=== PATIENT | male | born 1970 | race Caucasian/White ===

== ENCOUNTER 2021-12-26 07:43 | Outpatient (CLI) | payer BC, SELFPAY ==
[2021-12-26 19:11] LABS: Hemoglobin 15.9 g/dL (14.0-18.0); Mean Corpuscular HGB Conc 33.1 g/dl (32-36); Mean Corpuscular Hemoglobin 31.5 pg (26-34); Mean Platelet Volume 11.6 fl (7.4-10.4); Platelet Count Result 178 k/mm3 (150-375); Red Blood Count 5.05 M/mm3 (4.6-6.20); Red Cell Distribution Width 12.9 % (11.5-14.5); White Blood Count 4.5 K/mm3 (4.5-10.0)
[2021-12-26 21:22] LABS: Alanine Aminotransferase 68 U/L (4-50); Albumin Level 4.5 g/dL (3.5-5.1); Alkaline Phosphatase 99 U/L (38-126); Anion Gap 8 mmol/L (8-16); Aspartate Amino Transferase 45 U/L (17-59); Bilirubin,Total 0.8 mg/dL (0.2-1.3); Blood Urea Nitrogen 13 mg/dL (9-20); Calcium 9.6 mg/dL (8.4-10.2); Carbon Dioxide 25 mmol/L (22-30); Chloride 105 mmol/L (98-107); Cholesterol 137 mg/dL (0-200); Estimated Glomerular Filt Rate > 60; Glucose 119 mg/dL (65-110); HDL Direct 33 mg/dL; Potassium 4.5 mmol/L (3.4-5.0); Sodium 138 mmol/L (137-145); Triglycerides 171 mg/dL (<150)
[2021-12-26 21:33] LABS: LDL Cholesterol Direct 70 mg/dL
[2021-12-26 21:50] LABS: Prostate Specific Antigen 3.1 ng/mL (< OR = 4.0)
[2021-12-30 14:49] LABS: Testosterone Free 41.6 pg/mL (35.0-155.0); Testosterone Total 162 ng/dL (250-1100)
== END 2021-12-26 07:44 | disposition home or self-care (01) ==
PROVIDERS: PCP Family Medicine; Visit Provider Family Medicine
DX: Z12.5 Encounter for screening for malignant neoplasm of prostate (principal); E29.1 Testicular hypofunction; I10 Essential (primary) hypertension; Z00.00 Encounter for general adult medical examination without abnormal findings
CPT/HCPCS: 36415; 80053; 80061; 84153; 84402; 84403; 85027; G0103

== ENCOUNTER 2024-02-18 16:20 | Outpatient (CLI) | payer BC, SELFPAY ==
--- NOTE | ~2024-02-18 | XR_ITS ---
EXAMINATION: XR shoulder LT min 2V DATE: 02/18/2024 16:47 INDICATION: Left shoulder pain. TECHNIQUE: 4 views of left shoulder were obtained. COMPARISON: None. FINDINGS: Bone alignment is normal. No fracture. There is mild osteoarthritis of glenohumeral joint a nd moderate osteoarthritis of acromioclavicular joint. IMPRESSION: 1. Polyarticular osteoarthritis. Reviewed, dictated and finalized at location E.
== END 2024-02-18 16:21 | disposition home or self-care (01) ==
PROVIDERS: PCP Nurse Practitioner Adult Health; Visit Provider Nurse Practitioner Adult Health
DX: M19.012 Primary osteoarthritis, left shoulder (principal)
CPT/HCPCS: 73030

== ENCOUNTER 2025-06-12 16:04 | Outpatient (CLI) | payer BC, SELFPAY ==
--- NOTE | ~2025-06-12 | XR_ITS ---
Left foot Technique: AP, oblique, and lateral views were obtained. Clinical History: Pain Findings: No acute fracture or dislocation is seen. Osseous alignment is anatomic. Joint spaces are preserved without erosive or degenerative change. Soft tissues are unremarkable. Impression: Unremarkable left foot radiographs. Reviewed, dictated and finalized at [facility]. Impression: Unremarkable left foot radiographs.
--- OUTSIDE RECORDS SUMMARY | 2025-06-12 16:10 | XMS_ITS | Clinical Summary ---
Author Organization [facility] – [place] [address] Address [address] [place] [id number] Care Team Providers Care Stock Puller Name Role Phone Willy Tamez MD Primary Care Provider [phone] Allergies No known active allergies Medications gabapentin (NEURONTIN) 300 mg capsule take 1 capsule by oral route 3 times every day 90 5 5 Active Additional Information Patient not taking.Reported on 04/11/2019 cephalexin (KEFLEX) 500 mg capsule TAKE 1 CAPSULE BY MOUTH EVERY 6 HOURS 0 9 Active naproxen (NAPROSYN) 500 mg tablet Take 1 tablet (500 mg total) by mouth 2 (two) times a day with meals 30 tablet 2 Active Additional Information Patient not taking.Reported on 06/01/2023 lidocaine (LIDODERM) 5 % Place 1 patch on the skin daily Remove & discard patch within 12 hours or as directed by . 30 patch 2 Active cyclobenzaprine (FLEXERIL) 10 mg tablet Take 1 tablet (10 mg total) by mouth 2 (two) times a day as needed for muscle spasms 20 tablet 2 Active amLODIPine (NORVASC) 10 mg tablet Take 1 tablet (10 mg total) by mouth daily 3 Active atorvastatin (LIPITOR) 40 mg tablet Take 1 tablet (40 mg total) by mouth daily 3 Active lisinopriL (PRINIVIL,ZESTR IL) 10 mg tablet Take 1 tablet (10 mg total) by mouth daily 3 Active metoprolol XL (TOPROL-XL) 100 mg 24 hr tablet 3 Active Active Problems Problem Noted Date Diagnosed Date Degeneration of intervertebral disc of lumbar re gion 04/01/2016 Overview (01/30/2017): Lumbar DDD Acute appendicitis 12/19/2015 Overview (01/30/2017): Acute appendicitis Restless legs syndrome 05/22/2015 Overview (01/30/2017): Restless leg syndrome Hyperlipidemia 05/22/2015 Overview (01/30/2017): Hyperlipidemia Surgical History Surgery Date Site/Laterality Comments APPENDECTOMY Appendectomy Medical History Medical History Date Comments Hyperlipidemia Hyperlipidemia; Comments: KKL 05/22/2015 - Hypertension Obesity Neck pain 08/24/2022 Tobacco dependence Family History Medical History Relation Name Comments Emphysema Brother Chato Emphysema; Hypertension Brother Chato Hypertension; Relation Name Status Comments Brother Chato Social History Tobacco Use Types Packs/Day Years Used Date Smoking Tobacco: Every Day Tobacco Cessation:Ready to Q uit: Not Asked; Counseling Given: Not Answered Alcohol Use Standard Drinks/Week Comments Yes 0 (1 standard drink = 0.6 oz pur e alcohol) Sex and Gender Information Value Date Recorded Sex Assigned at Not on file 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 Gender Identity Not on file Sexual Orientation Not on file Obstetrics History Last Filed Vital Signs Vital Sign Reading Time Taken Comments Blood Pressure 156/70 06/01/2023 4:39 PM CDT Pulse 88 06/01/2023 4:39 PM CDT Temperature 36.7 C (98.1 F) 06/01/2023 4:39 PM CDT Respiratory Rate 29 06/01/2023 4:39 PM CDT Oxygen Saturation 97% 06/01/2023 4:39 PM CDT Inhaled Oxygen Concentration - - Weight 156.5 kg (345 lb) 06/01/2023 4:39 PM CDT Height 172.7 cm (5' 8) 06/01/2023 4:39 PM CDT Body Mass Index 52.46 06/01/2023 4:39 PM CDT Plan of Treatment Health Maintenance Due Date Last Done Comments Colon Cancer Screening-Colonoscopy 1972 Depression Screening 1972 Hepatitis C Screening 1972 DTaP/Tdap/Td Vaccine (1 - Tdap) 1983 Hepatitis B Screening 1990 Regular Well Visit/Exam 18-64 1990 Pneumococcal vaccine <65 (1 of 2 - PCV) 1991 Zoster Vaccine (1 of 2) 2022 Prostate Cancer Screening-PSA 02/07/2025 02/07/2023, 08/30/2022 Influenza Vaccine (#1) 2025 Procedures Procedure Name Priority Date/Time Associated Diagnosis Comments PSA DIAGNOSTIC Routine 02/07/2023 9:03 AM CDT from Last 3 Months or Most Recently Relevant to Health Maintenance Results * PSA diagnostic (02/07/2023 9:03 AM CDT) PSA-Total 3.77 <=3.90 ng/mL [facility] ([place]) Blood 02/07/2023 9:03 AM CDT 02/07/2023 9:27 AM CDT us Willy Tamez MD LAB BLOOD ORDERABLES Ivon maria Result [facility]A [facility] ([place]) 1 [facility] Department [place] [address] from Last 3 Months or Most Recently Relevant to Health Maintenance Insurance Everstring OOS Everstring OOS Care Teams Stock Puller Relationship Specialty Start Date End Date Willy Tamez MD PCP - General Family Practice 07/26/22
== END 2025-06-12 16:05 | disposition home or self-care (01) ==
PROVIDERS: PCP Nurse Practitioner Adult Health; Visit Provider Nurse Practitioner Adult Health
DX: M79.672 Pain in left foot (principal)
CPT/HCPCS: 73630

== ENCOUNTER 2025-07-24 12:29 | Outpatient (CLI) | payer BC, SELFPAY ==
--- NOTE | ~2025-07-24 | XR_ITS ---
EXAMINATION: XR foot LT min 3V, 07/24/2025 12:31 CDT HISTORY: M79.672 - Pain in left foot COMPARISON: No comparisons available. Findings: No acute fracture or malalignment. Small calcaneal spur. Moderate Achilles enthesopathy. Soft tissues unremarkable. Impression: No acute fracture or malalignment. Reviewed, dictated and finalized at location P. Impression: No acute fracture or malalignment.
--- OUTSIDE RECORDS SUMMARY | 2025-07-24 12:32 | XMS_ITS | Clinical Summary ---
Author Organization [facility] Address [address] [place] [address] Phone Care Team Providers Care Pantry Attendant Name Role Phone Juana Grant APN Primary Care Provider Tori vailable Social History Tobacco Use Types Packs/Day Years Used Date Smoking Tobacco: Never Assessed Sex and Gender Information Value Date Recorded Sex Assigned at Not on file Legal Sex Male 10:55 PM CDT Gender Identity Not on file Sexual Orientation Not on file Plan of Treatment Health Maintenance Due Date Last Done Comments Hepatitis C Virus (HCV) Screening 1972 TdaP Immunization 1972 Hepatitis B Immunization (1 of 3 - 19+ 3-dose series) 1991 Cologuard 2017 Colonoscopy 2017 Colorectal Cancer Screening 2017 Immunochemical Fecal Occult Blood 2017 Pneumococcal Immunization (5 0+ years) (1 of 1 - PCV) 2022 Zoster Immunization (1 of 2) 2022 Influenza Immunization (#1) 2025 SARS-COV-2 Immunization ( - season) 2025 Respiratory Syncytial Virus (RSV) Immunization (Adult) (1 - 1-dose 75+ series) 2047 Human Papillomavirus (HPV) Immunization Aged Out No longer eligible b ased on patient's age to complete this topic Meningococcal Immunization (ACWY) Aged Out No longer eligible based on patient's age to complete this topic Rotavirus Immunization Aged Out No lo nger eligible based on patient's age to complete this topic Insurance [facility] Care Teams Pantry Attendant Relationship Specialty Start Date End Date Juana Grant APN PCP - General Advanced Practice Nurse 04/04/16
--- OUTSIDE RECORDS SUMMARY | 2025-07-24 12:32 | XMS_ITS | Clinical Summary ---
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 Gender Identity Not on file Sexual Orientation [...] Procedure Name Priority Date/Time Associated Diagnosis Comments EGFR Routine 06/17/2025 7:31 AM CDT LIPID PANEL Routine 06/17/2025 7:31 AM CDT COMPREHENSIVE METABOLIC PANEL Routine 06/17/2025 7:31 AM CDT VITAMIN D 25 HYDROXY Routine 06/17/2025 7:31 AM CDT HEMOGLOBIN A1C Routine 06/17/2025 7:31 AM CDT CBC WITHOUT DIFFERENTIAL Routine 06/17/2025 7:31 AM CDT TESTOSTERONE, TOTAL AND FREE, SERUM Routine 06/17/2025 7:31 AM CDT PSA DIAGNOSTIC Routine 02/07/2023 9:03 AM CDT from Last 3 Months or Most Recently Relevant to Health Maintenance Results * eGFR (06/17/2025 7:31 AM CDT) eGFR >90 >=60 mL/min/1. 73 m2 Comment: Interpretive Data Reference Interval Normal >/= 90 mL/min/1.73m2 Mildly decreased* 60 - 89 mL/min/1.73m2 Mildly to moderately decreased 45 - 59 mL/min/1.73m2 Moderately to severely decreased 30 - 44 mL/min/1.73m2 Severely decreased 15 - 29 mL/min/1.73m2 Kidney Failure < 15 mL/min/1.73m2 *Relative to young adult level Estimated glomerular filtration rate is determined by the 2020 CKD-EPI equation recommended by the National Kidney Foundation (A Unifying Approach to GFR Estimation: Recommendations of the NKF-ASK Task Force on Reassessing the Inclusion of Race in Diagnosing Kidney Disease, JASN 2020). The CKD-EPI equation should not be used for patients with unstable renal function and has not been validated in children and those over 70. Current interpretive data was last reviewed 2021. Blood 06/17/2025 7:31 AM CDT 06/17/2025 7:53 AM CDT Justina Ross NP LAB BLOOD ORDERABLES Final Res ult [facility] ([place]) 1 [facility] [place] [address] * (ABNORMAL) Vitamin D 25 hydroxy (06/17/2025 7:31 AM CDT) Vitamin D 25-OH 25(L) 30 - 80 ng/mL [facility] ([place]) Blood 06/17/2025 7:31 AM CDT 06/17/2025 7:53 AM CDT Jusitna Ross NP LAB BLOOD ORDERABLES Final Res ult [facility] ([place]) 1 [facility] [place] [address] * CBC without differential (06/17/2025 7:31 AM CDT) WBC 8.53 3.80 - 9.90 K/cumm Hgb 16.2 13.0 - 17.5 g/dL [facility] ([place]) Hct 46.9 38.9 - 50.3 % [facility] ([place]) Plt 204 150 - 400 K/cumm [facility] ([place]) MPV 11.0 9.1 - 12.3 fL [facility] ([place]) RBC 5.16 4.30 - 5.80 M/cumm [facility] ([place]) MCV 90.9 81.3 - 96.4 fL [facility] ([place]) MCH 31.4 27.1 - 33.3 pg [facility] ([place]) MCHC 34.5 32.3 - 35.7 g/dL [facility] ([place]) RDW CV 12.8 11.1 - 14.9 % [facility] ([place]) RDW SD 42.6 35.7 - 48.1 fL [facility] ([place]) NRBC abs 0.00 0.00 - 0.01 K/cumm [facility] ([place]) Blood 06/17/2025 7:31 AM CDT 06/17/2025 7:53 AM CDT Justina Ross NP LAB BLOOD ORDERABLES Final Res ult [facility] ([place]) 1 [facility] Department [place] [address] * (ABNORMAL) Testosterone, Total and Free, Serum (06/17/2025 7:31 AM CDT) Testosterone 144(L) 240 - 950 ng/dL [facility] Comment: ADDITIONAL INFORMATION Testing performed by Liquid Chromatography-Tandem Mass Spectrometry (LC-MS/MS). This test was developed and its performance characteristics determined by [facility] in a manner consistent with CLIA requirements. This test has not been cleared or approved by the U.S. Food and Drug Administration. Test Performed by: [facility] - [address] [address] Excavator Backhoe Operator: Riley Wheeler Ph.D.; CLIA# [id number] Testosterone, free 6.35 4.06 - 15.6 ng/dL [facility] ([place]) Comment: ADDITIONAL INFORMATION This test was developed and its performance characteristics determined by [facility] in a manner consistent with CLIA requirements. This test has not been cleared or approved by the U.S. Food and Drug Administration. Blood 06/17/2025 7:31 AM CDT 06/17/2025 7:53 AM CDT Justina Ross NP LAB BLOOD ORDERABLES Final Res ult [facility] ([place]) 1 [facility] [place] [address] [place] * (ABNORMAL) Hemoglobin A1c (06/17/2025 7:31 AM CDT) Hgb A1C 5.9(H) 4.0 - 5.6 % [facility] ([place]) Estimated Average Glucose 123 mg/dL [facility] ([place]) Comment: The ADA recommends reporting an estimated Average Glucose (eAG) with all Hemoglobin A1c results using the equation derived from a study of 507 normal and diabetic adults. Minority populations were underrepresented and children were not included. (Diabetes Care 31:1911-0497, 2008). The eAG is not equivalent to a fasting glucose. Testing performed by: [facility], [place], [address] Blood 06/17/2025 7:31 AM CDT 06/17/2025 7:53 AM CDT Justina Ross NP LAB BLOOD ORDERABLES Final Res ult Performing Organization Address City/[facility]/ZIP Co de Phone Number [facility] ([place]) 1 [facility] [place] [address] * (ABNORMAL) Lipid panel (06/17/2025 7:31 AM CDT) Cholesterol 132 30 - 199 mg/dL [facility] ([place]) Comment: Interpretive Data Ages < or = 19 years Acceptable: <170 mg/dL Borderline high: 170-199 mg/dL High: >or= 200 mg/dL Ages > or = 20 years Desirable: <200 mg/dL Borderline high: 200-239 mg/dL High: >or= 240 mg/dL Literature References: 1. Expert Panel on Integrated Guidelines for Cardiovascular Health and Risk Reduction in Children and Adolescents. Pediatrics 2011;128:S213 2. NCEP Expert Panel. Circulation 2004;110:227 Current Interpretive Data was last revised on 2018. Triglycerides 157(H) <=149 mg/dL [facility] ([place]) Comment: Interpretive Data Ages < or = 9 years Acceptable: <75 mg/dL Borderline high: 75-99 mg/dL High: >or= 100 mg/dL Ages 10 to 20 years Acceptable: <90 mg/dL Borderline high: 90-129 mg/dL High: >or= 130 mg/dL Ages > or = 20 years Desirable: <150 mg/dL Borderline high: 150-199 mg/dL High: 200-499 mg/dL Very high: >or= 499 mg/dL Literature References: 1. Expert Panel on Integrated Guidelines for Cardiovascular Health and Risk Reduction in Children and Adolescents. Pediatrics 2011;128:S213 2. NCEP Expert Panel. Circulation 2004;110:227 Current Interpretive Data was last revised on 2018. HDL 38(L) >=40 mg/dL [facility] ([place]) Comment: Interpretive Data Ages < or = 19 years Acceptable: >45 mg/dL Borderline low: 40-45 mg/dL Low: <40 mg/dL Ages > or = 20 years Desirable: >or= 60 mg/dL Low: <40 mg/dL Literature References: 1. Expert Panel on Integrated Guidelines for Cardiovascular Health and Risk Reduction in Children and Adolescents. Pediatrics 2011;128:S213 2. NCEP Expert Panel. Circulation 2004;110:227 Current Interpretive Data was last revised on 2018. LDL, calculated 67 <=129 mg/dL [facility] ([place]) Comment: Interpretive Data Ages < or = 19 years Acceptable: <110 mg/dL Borderline high: 110-129 mg/dL High: >or= 130 mg/dL Ages > or = 20 years Optimal: <100 mg/dL Near optimal: 100-129 mg/dL Borderline high: 130-159 mg/dL High: >160 mg/dL Calculated using the Antione LDL-C estimating equation. This equation was implemented on 2024. Prior to this date LDL-C was estimated using the Friedewald equation. Literature References: 1. Expert Panel on Integrated Guidelines for Cardiovascular Health and Risk Reduction in Children and Adolescents. Pediatrics 2011;128:S213 2. NCEP Expert Panel. Circulation 2004;110:227 3. Antione Gotti et al. ERMELINDA Cardiol. 2020 February 23;5(5):540-548. doi: 10.1001/jamacardio.2020.0013 Current Interpretive Data was last revised on 2024. Testing performed by: [place], [address] Non-HDL Cholesterol 94 mg/dL [facility] ([place]) Comment: Interpretive Data Ages < or = 19 years Acceptable: <120 mg/dL Borderline high: 120-144 mg/dL High: >145 mg/dL Ages > or = 20 years When triglycerides are >200 mg/dL, Non-HDL cholesterol is a secondary target of therapy with treatment goals that are 30 mg/dL greater than the LDL cholesterol target. Literature References: 1. Expert Panel on Integrated Guidelines for Cardiovascular Health and Risk Reduction in Children and Adolescents. Pediatrics 2011;128:S213 2. NCEP Expert Panel. Circulation 2004;110:227 Current Interpretive Data was last revised on 2018. Testing performed by: [place], [address] Chol/HDL ratio 3 [facility]HAEL B[facility] ([place]) Comment:Testing performed by : [place], [address] Blood 06/17/2025 7:31 AM CDT 06/17/2025 7:53 AM CDT us Justina Ross NP LAB BLOOD ORDERABLES Final Res ult [facility] ([place]) 1 [facility] Department [place] [address] * (ABNORMAL) Comprehensive metabolic panel (06/17/2025 7:31 AM CDT) Sodium 138 135 - 145 mmol/L [facility] ([place]) Potassium, pl 4.3 3.3 - 4.9 mmol/L [facility] ([place]) Chloride 102 97 - 110 mmol/L [facility] ([place]) CO2 23 22 - 32 mmol/L [facility] ([place]) Anion gap 13 2 - 15 mmol/L [facility] ([place]) BUN 17 6 - 25 mg/dL [facility] ([place]) Creatinine 0.73(L) 0.80 - 1.30 mg/dL [facility] ([place]) Glucose 93 70 - 199 mg/dL [facility] ([place]) Comment: Interpretive Data Fasting glucose >/= 126 mg/dl is diagnostic for diabetes. Fasting is defined as no caloric intake for at least 8 hours. Fasting glucose between 100 mg/dl to 125 mg/dl is diagnostic of prediabetes. In a patient with classic symptoms of hyperglycemia or hyperglycemic crisis, a random glucose >/= 200 mg/dl is diagnostic for diabetes. In the absence of unequivocal hyperglycemia, results should be confirmed by repeat testing. The classification and Diagnosis of Diabetes Diabetes Care 2021; 46: S19-S40. Current interpretive data was last revised 2022. Calcium 9.0 8.5 - 10.3 mg/dL [facility] ([place]) Bilirubin, total 0.4 0.1 - 1.2 mg/dL [facility] ([place]) Protein, pl 7.7 6.5 - 8.5 g/dL [facility] ([place]) Albumin 4.6 3.5 - 5.0 g/dL [facility] ([place]) Alk phos 82 40 - 130 Units/L [facility] ([place]) ALT 60(H) 7 - 55 Units/L [facility] ([place]) AST 23 10 - 50 Units/L [facility] ([place]) Blood 06/17/2025 7:31 AM CDT 06/17/2025 7:53 AM CDT us Justina Ross NP LAB BLOOD ORDERABLES Final Res ult [facility] ([place]) 1 [facility] Department [place] [address] * PSA diagnostic (02/07/2023 9:03 AM CDT) PSA-Total 3.77 <=3.90 ng/mL [facility] ([place]) Blood 02/07/2023 9:03 AM CDT 02/07/2023 9:27 AM CDT us Willy Tamez MD LAB BLOOD ORDERABLES Ivon maria Result [facility] ([place]) 1 [facility] Department [place] [address] from Last 3 Months or Most Recently Relevant to Health Maintenance Insurance Droplet OOS Droplet OOS Care Teams Drama Teacher Relationship Specialty Start Date End Date Willy Tamez MD PCP - General Family Practice 07/26/22
== END 2025-07-24 12:30 | disposition home or self-care (01) ==
LOC: ANHBWCIMG 12:30
PROVIDERS: PCP Nurse Practitioner Adult Health; Visit Provider Orthopaedic Surgery
DX: M79.672 Pain in left foot (principal)
CPT/HCPCS: 73630